=== PATIENT | female | born 1950 | race Caucasian/White ===

== ENCOUNTER 2020-11-07 13:17 | Outpatient (CLI) | payer MEDICARE | END 2020-11-07 13:18 | disposition home or self-care (01) | LOC: CSHLAB 13:17 | PROVIDERS: ATTEND Obstetrics & Gynecology | DX: Z01.818 Encounter for other preprocedural examination (principal); Z20.822 Contact with and (suspected) exposure to COVID-19; R94.31 Abnormal electrocardiogram [ECG] [EKG] | CPT/HCPCS: 84703; 85027; 86850; 86900; 86901; 87635; 93005; 93010; U0003; U0005 ==

== ENCOUNTER 2020-11-12 08:09 | Day surgery (SDC) | payer MEDICARE ==
[2020-11-07 15:11] LABS: BHCG - Serum Negative (NEGATIVE); Pregs Control Background? CLEAR/WHITE (CLR/WHITE); Pregs Control Bar Appear? YES (CONTROL BAR)
[2020-11-07 15:39] LABS: Hemoglobin 13.9 g/dL (12.0-15.5); Mean Corpuscular HGB CONC 32.8 g/dL (32.0-36.0); Mean Corpuscular Hemoglobin 30.5 pg (27.0-33.0); Mean Platelet Volume 11.8 fl (7.4-10.4); Platelet Count 185 10x3/uL (150-450); RBC Distribution Width 13.1 % (11.5-14.5); Red Blood Cell (RBC) Count 4.56 10x6/uL (3.90-5.03); White Blood Cell (WBC) Count 5.4 10x3/uL (3.5-10.5)
[2020-11-08 01:48] LABS: SARS-CoV-2 PCR by NAA Not Detected (NotDetected)
[2020-11-08 10:38] VITALS: BMI 21.3
[2020-11-12] MEDS ORDERED: Gabapentin 300 MG CAP ONE (08:23)
[2020-11-12] MEDS ORDERED: Lidocaine 1% MPF 2 ML VIAL ONE (08:24)
[2020-11-12] MEDS ORDERED: CeleCOXIB 100 MG CAP ONE (08:24)
[2020-11-12] MEDS ORDERED: Famotidine/PF 20 mg/2ml Vial ONE (08:24)
[2020-11-12] MEDS ORDERED: EPINEPHrine 1 MG/ML AMP ONE (10:07)
[2020-11-12] MEDS ORDERED: Bupivacaine PF 0.5% 30 ML VIAL ONE (10:07)
[2020-11-12] MEDS ORDERED: PROPOFOL 20 ML ONE (10:37)
[2020-11-12] MEDS ORDERED: Lidocaine 1% PF 5 ML VIAL ONE (10:38)
[2020-11-12] MEDS ORDERED: Fentanyl 100 MCG/2 ML VIAL ONE ×5 (10:38→14:02)
[2020-11-12] MEDS ORDERED: Vecuronium 10 MG VIAL ONE (10:38)
[2020-11-12] MEDS ORDERED: Sterile Water 10 ML ONE (10:39)
[2020-11-12] MEDS ORDERED: Metoclopramide HCl 10 MG/2 ML VIAL ONE (10:42)
[2020-11-12] MEDS ORDERED: Ondansetron PF 4 MG/2 ML Vial ONE (10:42)
[2020-11-12] MEDS ORDERED: ePHEDrine 50 MG/ML VIAL ONE (11:06)
[2020-11-12] MEDS ORDERED: Glycopyrrolate 0.2 MG/ML 5 ML SYRINGE ONE (11:27)
[2020-11-12] MEDS ORDERED: Furosemide 20 MG/2 ML VIAL ONE (13:04)
[2020-11-12] MEDS ORDERED: traMADol HCl 50 MG TAB PO PRN (13:16)
[2020-11-12] MEDS ORDERED: Morphine 4 MG/ML VIAL SLOW IVP PRN (13:16)
[2020-11-12] MEDS ORDERED: Promethazine HCl 25 MG/ML VIAL IM PRN (13:16)
[2020-11-12] MEDS ORDERED: Bisacodyl 10 MG SUPP PR PRN (13:16)
[2020-11-12] MEDS ORDERED: HYDROcodone/Acetaminophen 10/325 mg Tablet PO PRN (13:16)
[2020-11-12] MEDS ORDERED: Ondansetron PF 4 MG/2 ML Vial IVP PRN (13:16)
[2020-11-12] MEDS ORDERED: Morphine 2 MG/ML VIAL SLOW IVP PRN (13:16)
[2020-11-12] MEDS ORDERED: diphenhydrAMINE 25 MG CAP PO PRN (13:16)
[2020-11-12] MEDS ORDERED: Simethicone Chewable 80 MG TAB PO PRN (13:16)
[2020-11-12] MEDS ORDERED: Fluticasone Propionate Nasal Spray 16 gm Bottle NASAL PRN (13:19)
[2020-11-12] MEDS ORDERED: Aspirin 325 MG TAB PO SCH (21:00)
[2020-11-12] MEDS ORDERED: Rosuvastatin 10 MG TAB PO SCH (21:00)
[2020-11-12] MEDS ORDERED: DICLOFENAC SODIUM TOP SCH (21:00)
[2020-11-12] MEDS ORDERED: Losartan Potassium 50 MG TAB PO SCH (21:00)
[2020-11-12] MEDS ORDERED: Escitalopram Oxalate 10 mg Tablet PO SCH (21:00)
[2020-11-13] MEDS: traMADol HCl 50 MG TAB PO PRN ×2 (04:42→09:58)
[2020-11-13 05:17] VITALS: TEMP 98.5
[2020-11-13 05:57] LABS: Hemoglobin 13.3 g/dL (12.0-15.5); Mean Corpuscular HGB CONC 32.4 g/dL (32.0-36.0); Mean Corpuscular Hemoglobin 30.9 pg (27.0-33.0); Mean Corpuscular Volume 95.1 fl (81.6-98.3); Mean Platelet Volume 11.5 fl (7.4-10.4); Platelet Count 163 10x3/uL (150-450); RBC Distribution Width 13.3 % (11.5-14.5); Red Blood Cell (RBC) Count 4.31 10x6/uL (3.90-5.03); White Blood Cell (WBC) Count 5.8 10x3/uL (3.5-10.5)
[2020-11-13 07:33] VITALS: BP 103/55
[2020-11-13] MEDS ORDERED: Levothyroxine Sodium 112 MCG TAB PO SCH (09:00)
== END 2020-11-13 11:40 | disposition home or self-care (01) ==
LOC: CSHSDC 08:09 → UNDOADMOB 14:29 → CSHPP 14:29 → UNDODISOB 11-13 11:30 → CSHSDC 11-13 11:40
PROVIDERS: ATTEND Obstetrics & Gynecology
PROC: 0UT94ZZ Resection of Uterus, Percutaneous Endoscopic Approach (ICD-10-PCS; principal; 2020-11-12)
PROC: 0UT74ZZ Resection of Bilateral Fallopian Tubes, Percutaneous Endoscopic Approach (ICD-10-PCS; 2020-11-12)
PROC: 0USG7ZZ Reposition Vagina, Via Natural or Artificial Opening (ICD-10-PCS; 2020-11-12)
DX: N81.4 Uterovaginal prolapse, unspecified (principal); N72 Inflammatory disease of cervix uteri; Z79.82 Long term (current) use of aspirin; Z79.899 Other long term (current) drug therapy; Z88.2 Allergy status to sulfonamides
CPT/HCPCS: 57283; 58571; 84703; 85027 ×2; 86850; 86900; 86901; 88307; U0003; U0005; 87635; J0171; J0690; J1940; J2405; J2704; J2765; J3010; J3490; S0020; S0028